=== PATIENT | male | born 1985 | race Caucasian/White ===

== ENCOUNTER 2018-10-16 11:18 | Inpatient (IN) | payer OTHER ==
[~2018-10-16] VITALS: Ht 182.9 cm; Wt 91.7 kg
--- NOTE | 2018-10-16 11:35 | NUR ---
Pt ambulates with steady gait and balance from triage to room. NADN. No obvious defecits observed.
--- NOTE | 2018-10-16 11:56 | NUR ---
THIS IS A 32 Y/O MALE ARRIVING TO THE ED WITH C/O OF VERTIGO X 3 DAYS. PT REPORTS SUDDEN ONSET AND PREVIOUS EPISODE WHEN HE WAS A CHILD. PT REPORTS CHANGES IN POSITION CAUSE VERTIGO. PT IS A/OX 4 AND INDEPENDANT. PT HAS NO SIGNIIFCANT MEDICAL HX AND GROSS NEURO IS INTACT. PT CONNECTED TO MONITORS AND PIV PLACED. VSS.
[2018-10-16] MEDS ORDERED: MECLIZINE CHEWABLE 25 MG TAB ONE (11:59)
[2018-10-16] MEDS ORDERED: KETOROLAC 30 MG/1 ML ONE (11:59)
[2018-10-16] MEDS ORDERED: SODIUM CHLORIDE FLUSH 10ML SYR IVF ONE (12:00)
[2018-10-16] MEDS ORDERED: SODIUM CHLORIDE 0.9% 1,000ML IVBOLUS ONE ×2 (12:00→15:00)
[2018-10-16] MEDS ORDERED: KETOROLAC 30 MG/1 ML IVPush ONE (12:00)
[2018-10-16] MEDS ORDERED: MECLIZINE CHEWABLE 25 MG TAB PO ONE (12:00)
--- NOTE | 2018-10-16 12:13 | NUR ---
PT MEDICATED PER EMAR. PIV PLACED
[2018-10-16 12:36] LABS: ALBUMIN 3.6 g/dL (3.4-5.0); ANION GAP 8 mmol/L (5-15); CALCIUM 8.5 mg/dL (8.5-10.1); CHLORIDE 105 mmol/L (98-107); CREATININE 1.16 mg/dL (0.7-1.3)
[2018-10-16 12:44] LABS: MEAN CORPUSCULAR HEMOGLOBIN 31.5 pg (27.5-34.5); MEAN CORPUSCULAR HGB CONC 33.4 g/dL (33.2-36.2); MEAN CORPUSCULAR VOLUME 94.2 fL (81-97); MEAN PLATELET VOLUME 10.4 fL (7.4-10.4); PLATELET COUNT 72 x10^3/uL (130-400); RED BLOOD COUNT 5.06 x10^6/uL (4.38-5.82); RED CELL DISTRIBUTION WIDTH 12.8 % (9.4-14.8)
[2018-10-16] MEDS ORDERED: DIAZEPAM 5 MG/ML, 2ML ONE (12:50)
[2018-10-16] MEDS ORDERED: DIAZEPAM 5 MG/ML, 10ML VIAL IV ONE (13:00)
--- NOTE | 2018-10-16 13:09 | NUR ---
PT MEDICATED PER EMAR, VSS
[2018-10-16] MEDS ORDERED: DIAZEPAM 5 MG/ML, 2ML IV ONE (13:30)
[2018-10-16 13:42] LABS: MD YES
[2018-10-16 13:49] LABS: ALBUMIN 3.6 g/dL (3.4-5.0); BILIRUBIN, DIRECT 0.1 mg/dL (0.1-0.2)
[2018-10-16 13:50] LABS: <PLATELET ESTIMATE> ADEQUATE; <PLT MORPHOLOGY> NORMAL PLT MORPH; <RBC MORPHOLOGY> NORMAL; BAND#(MANUAL) 0.21 x10^3/uL; BANDS%(MANUAL) 8 % (0-7); LYMPH#(MANUAL) 0.68 x10^3/uL (1-3.4); LYMPHS% (MANUAL) 26 % (22-44); MONOS#(MANUAL) 0.57 x10^3/uL (0.3-2.7); MONOS% (MANUAL) 22 % (2-9); SEG#(MANUAL) 1.14 x10^3/uL (1.8-6.8); SEGS% (MANUAL) 44 % (42-75)
[2018-10-16 13:51] LABS: BILIRUBIN,INDIRECT 0.5 mg/dL (0.0-2.0); BILIRUBIN,TOTAL 0.6 mg/dL (0.2-1.0)
[2018-10-16 15:12] LABS: MD YES; MEAN CORPUSCULAR HEMOGLOBIN 32.3 pg (27.5-34.5); MEAN CORPUSCULAR HGB CONC 33.9 g/dL (33.2-36.2); MEAN CORPUSCULAR VOLUME 95.4 fL (81-97); RED BLOOD COUNT 4.82 x10^6/uL (4.38-5.82); RED CELL DISTRIBUTION WIDTH 12.8 % (9.4-14.8)
[2018-10-16 15:34] LABS: BAND#(MANUAL) 0.36 x10^3/uL; BANDS%(MANUAL) 17 % (0-7); EOS#(MANUAL) 0.02 x10^3/uL (0.0-0.4); EOS% (MANUAL) 1 % (1-7); LYMPH#(MANUAL) 0.78 x10^3/uL (1-3.4); LYMPHS% (MANUAL) 37 % (22-44); METAMYELOCYTES# (MANUAL) 0.11 x10^3/uL (0-0); METAMYELOCYTES% (MANUAL) 5 % (0-1); MONOS#(MANUAL) 0.21 x10^3/uL (0.3-2.7); MONOS% (MANUAL) 10 % (2-9); REACTIVE LYMPHS # (MANUAL) 0.02 x10^3/uL (0-0); REACTIVE LYMPHS % (MANUAL) 1 % (0-0); SEG#(MANUAL) 0.61 x10^3/uL (1.8-6.8); SEGS% (MANUAL) 29 % (42-75)
[2018-10-16 15:36] LABS: <PLATELET ESTIMATE> DECREASED; <RBC MORPHOLOGY> NORMAL; LARGE PLATELETS 1+
[2018-10-16 15:37] LABS: MEAN PLATELET VOLUME 11.2 fL (7.4-10.4); PLATELET COUNT 76 x10^3/uL (130-400)
[2018-10-16] MEDS ORDERED: LIDOCAINE-MPF 1%, 5ML ONE ×2 (15:53)
[2018-10-16] MEDS ORDERED: CEFTRIAXONE PMX 2GM/50ML 50 ML IV ONE (16:00)
[2018-10-16 16:23] LABS: HCT (SEDRATE) 50.7 % (39.2-51.8)
--- NOTE | 2018-10-16 17:23 | NUR ---
PT PIV SITE REDRESSED AND NEW TEGADERM AND COBAN APPLIED TO PT.
--- NOTE | 2018-10-16 17:24 | NUR ---
REPORT TO DERIC JAY.
[2018-10-16 17:37] LABS: GLUCOSE, CSF 50 mg/dL (40-80); TOTAL PROTEIN,CSF 73 mg/dL (15-45)
[2018-10-16 18:57] VITALS: BP 132/68
[2018-10-16 20:26] LABS: INTERNATIONAL NORMALIZED RATIO 1.02 (0.93-1.1); PROTHROMBIN TIME 10.7 Seconds (9.6-11.5)
[2018-10-16] MEDS ORDERED: ACETAMINOPHEN 325 MG TABLET PO PRN (21:00)
[2018-10-16] MEDS ORDERED: ONDANSETRON 2MG/ML, 2ML IVPush PRN (21:00)
[2018-10-16] MEDS: SODIUM CHLORIDE 0.9% 1,000 ML IV SCH (21:16)
[2018-10-16] MEDS: ONDANSETRON ODT 4 MG PO PRN (21:44)
[2018-10-17 02:17] VITALS: BP 103/66
[2018-10-17 04:44] LABS: MEAN CORPUSCULAR HEMOGLOBIN 31.9 pg (27.5-34.5); MEAN CORPUSCULAR HGB CONC 33.5 g/dL (33.2-36.2); MEAN CORPUSCULAR VOLUME 95.2 fL (81-97); MEAN PLATELET VOLUME 10.4 fL (7.4-10.4); PLATELET COUNT 71 x10^3/uL (130-400); RED BLOOD COUNT 4.76 x10^6/uL (4.38-5.82); RED CELL DISTRIBUTION WIDTH 12.9 % (9.4-14.8)
[2018-10-17 04:51] LABS: ALANINE AMINOTRANSFERASE 149 U/L (12-78); ANION GAP 6 mmol/L (5-15); CALCIUM 7.8 mg/dL (8.5-10.1); CHLORIDE 110 mmol/L (98-107); CREATININE 0.97 mg/dL (0.7-1.3)
[2018-10-17] MEDS: ONDANSETRON ODT 4 MG PO PRN (04:53)
[2018-10-17] MEDS: IBUPROFEN 600 MG TABLET PO PRN ×2 (04:53→17:15)
[2018-10-17] MEDS: SODIUM CHLORIDE 0.9% 1,000 ML IV SCH (04:55)
[2018-10-17 05:01] LABS: ALKALINE PHOSPHATASE 57 U/L (45-117); BILIRUBIN,TOTAL 0.4 mg/dL (0.2-1.0); TOTAL PROTEIN 6.7 g/dL (6.4-8.2)
[2018-10-17 05:39] LABS: MD YES
[2018-10-17 05:42] LABS: LYMPH#(MANUAL) 0.68 x10^3/uL (1-3.4); LYMPHS% (MANUAL) 34 % (22-44)
[2018-10-17 05:43] LABS: <PLATELET ESTIMATE> DECREASED; <RBC MORPHOLOGY> NORMAL; LARGE PLATELETS 1+; PMNS WITH VACUOLES 1+
[2018-10-17 05:44] LABS: BAND#(MANUAL) 0.18 x10^3/uL; BANDS%(MANUAL) 9 % (0-7); EOS#(MANUAL) 0.02 x10^3/uL (0.0-0.4); EOS% (MANUAL) 1 % (1-7); MONOS#(MANUAL) 0.28 x10^3/uL (0.3-2.7); MONOS% (MANUAL) 14 % (2-9); SEG#(MANUAL) 0.84 x10^3/uL (1.8-6.8); SEGS% (MANUAL) 42 % (42-75)
[2018-10-17 07:31] VITALS: BP 121/74
[2018-10-17 09:38] LABS: MICROSCOPIC INDICATED
[2018-10-17 09:49] LABS: CULTURE INDICATED? NO
[2018-10-17 13:11] VITALS: BP 114/71
[2018-10-17 19:25] VITALS: BP 131/66
[2018-10-18 02:28] VITALS: BP 105/69
[2018-10-18 05:07] LABS: MEAN CORPUSCULAR HEMOGLOBIN 31.9 pg (27.5-34.5); MEAN CORPUSCULAR HGB CONC 33.2 g/dL (33.2-36.2); MEAN CORPUSCULAR VOLUME 96.2 fL (81-97); PLATELET COUNT 69 x10^3/uL (130-400); RED BLOOD COUNT 4.76 x10^6/uL (4.38-5.82); RED CELL DISTRIBUTION WIDTH 13.1 % (9.4-14.8)
[2018-10-18 05:12] LABS: CHLORIDE 108 mmol/L (98-107)
[2018-10-18 05:19] LABS: ALANINE AMINOTRANSFERASE 121 U/L (12-78); ALBUMIN 3.2 g/dL (3.4-5.0); ALKALINE PHOSPHATASE 58 U/L (45-117); ANION GAP 7 mmol/L (5-15); BILIRUBIN,TOTAL 0.4 mg/dL (0.2-1.0); CALCIUM 8.3 mg/dL (8.5-10.1)
[2018-10-18 05:41] LABS: MD YES
[2018-10-18 05:45] LABS: BAND#(MANUAL) 0.14 x10^3/uL; BANDS%(MANUAL) 7 % (0-7); EOS#(MANUAL) 0.18 x10^3/uL (0.0-0.4); EOS% (MANUAL) 9 % (1-7); LYMPH#(MANUAL) 0.72 x10^3/uL (1-3.4); LYMPHS% (MANUAL) 36 % (22-44); MONOS#(MANUAL) 0.38 x10^3/uL (0.3-2.7); MONOS% (MANUAL) 19 % (2-9); SEG#(MANUAL) 0.58 x10^3/uL (1.8-6.8); SEGS% (MANUAL) 29 % (42-75)
[2018-10-18 05:46] LABS: <PLATELET ESTIMATE> DECREASED; <RBC MORPHOLOGY> NORMAL; LARGE PLATELETS 1+
[2018-10-18 07:20] VITALS: BP 100/64
[2018-10-18] MEDS ORDERED: DIPHENHYDRAMINE 25 MG CAPSULE ONE (10:16)
[2018-10-18] MEDS: ONDANSETRON ODT 4 MG PO PRN (10:24)
[2018-10-18] MEDS ORDERED: DIPHENHYDRAMINE 25 MG CAPSULE PO ONE (10:30)
[2018-10-18 12:43] VITALS: BP 104/67
[2018-10-18 16:01] LABS: ANA SCREEN NEGATIVE (Negative)
== END 2018-10-18 15:57 | disposition home or self-care (01) | DRG 865 ==
LOC: ED 13:17 → EDIP 15:53 → 3NW 17:18
PROVIDERS: ADMIT Internal Medicine; ATTEND Internal Medicine
PROC: 009U3ZX Drainage of Spinal Canal, Percutaneous Approach, Diagnostic (ICD-10-PCS; principal; 2018-10-16)
DX: B09 Unspecified viral infection characterized by skin and mucous membrane lesions (principal); G03.9 Meningitis, unspecified; D69.6 Thrombocytopenia, unspecified; D70.9 Neutropenia, unspecified; J45.909 Unspecified asthma, uncomplicated; L27.0 Generalized skin eruption due to drugs and medicaments taken internally; R53.82 Chronic fatigue, unspecified; B34.9 Viral infection, unspecified; R59.1 Generalized enlarged lymph nodes
CPT/HCPCS: 36415; 70450; 76700; 76857; 77003; 80048; 80053; 80074; 80076; 81001; 82040; 82525; 82607; 82945; 83605; 83615; 83735; 84100; 84145; 84157; 84443; 85025; 85384; 85610; 85651; 86038; 86140; 86308; 86430; 87040; 87070; 87205; 87252; 87806; 89051; 93005; 96374; 99285; G0378; J0696; J1885; Q0162; G0475; J7030; Q0163

== ENCOUNTER 2019-10-14 16:22 | Emergency (ER) | payer OTHER ==
[~2019-10-14] VITALS: Ht 182.9 cm; Wt 89.6 kg
[2019-10-14 16:24] VITALS: BP 172/91
--- NOTE | 2019-10-14 17:56 | NUR ---
RN HOME CARE: PT WALKED BACK FROM LOBBY TO ROOM AT THIS TIME.
--- NOTE | 2019-10-14 17:59 | NUR ---
MEDIA ASSOCIATE: PT WALKED BACK FROM LOBBY TO ROOM AT THIS TIME.
[2019-10-14 18:16] LABS: BASOPHILS # (AUTO) 0.02 x10^3/uL (0-0.1); BASOPHILS % (AUTO) 0 % (0-1); EOSINOPHILS % (AUTO) 9 % (1-7); LYMPHOCYTES # (AUTO) 1.31 x10^3/uL (1-3.4); LYMPHOCYTES % (AUTO) 15 % (22-44); MD NO; MEAN CORPUSCULAR HEMOGLOBIN 31.4 pg (27.5-34.5); MEAN CORPUSCULAR HGB CONC 33.7 g/dL (33.2-36.2); MEAN PLATELET VOLUME 10.1 fL (7.4-10.4); MONOCYTES # (AUTO) 0.85 x10^3/uL (0.2-0.8); MONOCYTES % (AUTO) 10 % (2-9); NEUTROPHILS # (AUTO) 5.67 x10^3/uL (1.8-6.8); NEUTROPHILS % (AUTO) 66 % (42-75); PLATELET COUNT 146 x10^3/uL (130-400); RED BLOOD COUNT 5.42 x10^6/uL (4.38-5.82); RED CELL DISTRIBUTION WIDTH 13.2 % (9.4-14.8)
[2019-10-14 18:23] LABS: ANION GAP 6 mmol/L (5-15); CALCIUM 9.2 mg/dL (8.5-10.1); CHLORIDE 108 mmol/L (98-107); CREATININE 0.99 mg/dL (0.7-1.3)
[2019-10-14 18:44] LABS: MICROSCOPIC NOT IND
== END 2019-10-14 19:41 | disposition home or self-care (01) ==
LOC: ED 18:25
DX: R59.0 Localized enlarged lymph nodes (principal); L40.50 Arthropathic psoriasis, unspecified; M25.571 Pain in right ankle and joints of right foot; M25.572 Pain in left ankle and joints of left foot
CPT/HCPCS: 36415; 80048; 81003; 82040; 85025; 99283

== ENCOUNTER 2020-09-12 15:15 | Emergency (ER) | payer OTHER ==
[~2020-09-12] VITALS: Ht 182.9 cm; Wt 97.2 kg
[2020-09-12 15:51] LABS: BASOPHILS % (AUTO) 1 % (0-1); EOSINOPHILS % (AUTO) 7 % (1-7); LYMPHOCYTES % (AUTO) 25 % (22-44); MEAN CORPUSCULAR HEMOGLOBIN 31.9 pg (27.5-34.5); MEAN CORPUSCULAR HGB CONC 34.7 g/dL (33.2-36.2); MEAN PLATELET VOLUME 10.7 fL (7.4-10.4); MONOCYTES % (AUTO) 11 % (2-9); NEUTROPHILS % (AUTO) 58 % (42-75); PLATELET COUNT 126 x10^3/uL (130-400); RED BLOOD COUNT 5.39 x10^6/uL (4.38-5.82); RED CELL DISTRIBUTION WIDTH 12.8 % (9.4-14.8)
[2020-09-12 16:02] LABS: ALANINE AMINOTRANSFERASE 42 U/L (12-78); ANION GAP 6 mmol/L (5-15); CALCIUM 9.1 mg/dL (8.5-10.1); CHLORIDE 109 mmol/L (98-107); CREATININE 0.99 mg/dL (0.7-1.3)
[2020-09-12 16:05] LABS: ALKALINE PHOSPHATASE 67 U/L (45-117); BILIRUBIN,TOTAL 0.5 mg/dL (0.2-1.0); TOTAL PROTEIN 8.2 g/dL (6.4-8.2); TROPONIN I < 0.015 ng/mL (0.000-0.045)
--- NOTE | 2020-09-12 17:21 | NUR ---
LAST REPAIRER HELPER: PT TO ROOM FROM LOBBY
--- NOTE | 2020-09-12 17:36 | NUR ---
PT PRESENTS TO ED WITH C/O CHEST PAIN AND SOB SINCE WEDNESDAY. PT STATES CHEST PAIN RADIATES TO LEFT ARM. PT A&O, RESPS EVEN AND UNLABORED, VSS, ALL MONITORS ATTACHED, NSR, NO ECTOPY, NADN. WARM BLANKET PROVIDED, CALL LIGHT IN REACH, AWAITING LAB RESULTS AND DISPO.
[2020-09-12 18:29] VITALS: BP 131/98
--- NOTE | 2020-09-12 18:30 | NUR ---
SANIYA MENDOZA AT BEDSIDE TO DISCUSS POC
--- NOTE | 2020-09-12 18:39 | NUR ---
PT EDUCATED ON DISCHARGE INSTRUCTIONS, PRESCRIPTION, AND FOLLOW-UP, VERBALIZED UNDERSTANDING. PT A&O, RESPS EVEN AND UNLABORED, VSS, NADN. AMBULATORY TO DISCHARGE WITH STEADY GAIT.
== END 2020-09-12 18:42 | disposition home or self-care (01) ==
LOC: ED 18:35
DX: R07.89 Other chest pain (principal); R06.2 Wheezing; R06.02 Shortness of breath; R94.31 Abnormal electrocardiogram [ECG] [EKG]
CPT/HCPCS: 36415; 71045; 80053; 83690; 84484; 85025; 93005; 99285